=== PATIENT | male | born 1995 | race Native Hawaiian/Other Pacific Islander ===

== ENCOUNTER 2016-11-19 23:41 | Emergency (ER) | payer OTHER ==
[~2016-11-19] VITALS: Ht 177.8 cm; Wt 63.5 kg
== END 2016-11-20 00:39 | disposition home or self-care (01) ==
LOC: ED 23:41
DX: R04.0 Epistaxis (principal); R55 Syncope and collapse; R06.02 Shortness of breath
CPT/HCPCS: 99281